=== PATIENT | female | born 2005 | race Caucasian/White ===

== ENCOUNTER 2024-03-23 17:29 | Observation (INO) ==
[2024-03-23 18:33] LABS: Basophils # (auto) 0.07 K/uL (0.00-0.20); Basophils % (auto) 0.5 %; Eosinophils # (auto) 0.25 K/uL (0.00-0.50); Eosinophils % (auto) 1.6 %; Hematocrit (blood only) 39.1 % (37.0-47.0); Hemoglobin 13.5 g/dl (12.0-16.0); Immature Granulocytes # (auto) 0.06 K/uL (0.01-0.20); Immature Granulocytes % (auto) 0.4 %; Lymphocytes # (auto) 2.46 K/uL (1.20-3.40); Lymphocytes % (auto) 15.9 %; Mean Corpuscular Hemoglobin 28.5 pg (25.0-34.0); Mean Corpuscular Hgb Conc 34.5 g/dL (32.0-36.0); Mean Corpuscular Volume 82.7 fL (80.0-100.0); Monocytes # (auto) 0.81 K/uL (0.11-0.59); Monocytes % (auto) 5.2 %; Neutrophils # (auto) 11.79 K/uL (1.40-6.50); Neutrophils % (auto) 76.4 %; Platelet Count 352 K/uL (130-400); RDW Coefficient of Variation 12.4 % (11.5-14.5); RDW Standard Deviation 37.8 fL (36.4-46.3); Red Blood Count 4.73 M/uL (4.20-5.40); White Blood Count 15.44 K/ul (4.8-10.8)
[2024-03-23 18:48] LABS: Albumin Globulin Ratio 1.4 (0.9-2); Albumin Level 4.6 gm/dl (3.4-5.0); BUN Creatinine Ratio 12.3 (10-20); Bilirubin,Total 0.4 mg/dl (0.2-1.0); Calcium 9.8 mg/dl (8.6-10.3); Creatinine Clr Calc Pharmacy 107.7 ml/min; Est GFR (African American) 121.2 ml/min; Est GFR (Non-African American) 104.6 ml/min; Globulin 3.3 gm/dl (2.5-4.0); Potassium 3.8 mmol/L (3.5-5.1); Total Protein 7.9 gm/dl (6.0-8.3)
[2024-03-23 18:54] LABS: Troponin I High Sensitivity 2.9 pg/ml (0-14)
[2024-03-23] MEDS: SODIUM CHLORIDE 0.9% 1,000 ML IV ONE (19:04)
[2024-03-23 19:08] LABS: INR 0.9 (0.9-1.1); Partial Thromboplastin Ratio 0.9; Partial Thromboplastin Time 24 Seconds (21-31); Prothrombin Time 9.6 Seconds (9.0-12.0)
--- NOTE | 2024-03-23 19:09 | Emergency Department Note ---
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 In the last several weeks, she has had episodes similar to today. She notices difficulty with her vision. The center of her vision in both eyes is blurry. She can see the periphery. She then typically develops some confusion and she has a hard time trying to text. She feels numbness usually to 1 side of the body, sometimes right, sometimes the left. After about 20 or so minutes, she develops a headache which is typically right-sided. After time, the headache resolves and she feels back to baseline. Today, around 4 hours ago, she was at practice. She began to feel funny, she noticed her vision was off, her right hand got numb, she felt confused. She noticed a bit of chest pressure. She then developed a headache. She presents for evaluation, her symptoms have now all resolved. The patient has no history of migraine or complex migraine, she is not convinced there is this diagnosis in the family. She has never had syncope with these episodes. PMHx/PSHx/Social Hx: See Below PHYSICAL EXAM: GENERAL: Patient is in no acute distress. HEENT: No acute trauma, normocephalic atraumatic, mucous membranes moist, no nasal congestion. Pupils equal and reactive to light. NECK: No stridor, no adenopathy, no meningismus, trachea is midline. LUNGS: Clear to auscultation bilaterally, no wheeze, no rhonchi, breath sounds equal. HEART: Without murmurs gallops or rubs, regular rate and rhythm. ABDOMEN: Soft, nontender, no peritonitis. EXTREMITIES: No cyanosis, full range of motion of all the joints without pain or difficulty. NEUROLOGIC: Oriented x 3, no acute motor or sensory deficits, no focal weakness. No speech slur or extremity drift, no cerebellar dysfunction, excellent historian. No facial droop. SKIN: No jaundice, no diaphoresis. DIFFERENTIAL DIAGNOSIS: Stroke, dysrhythmia, intracranial bleeding, migraine, complex migraine, among others. EMERGENCY DEPARTMENT PROCEDURES: MEDICAL DECISION MAKING: There is a moderate leukocytosis, this could be consistent with infection or just the stress of her presentation. There was a normal hemoglobin and platelet count. No coagulopathy. No renal failure or significant electrolyte abnormality. No concerning liver enzyme elevation. The patient appeared to be in a euthyroid state. testing was negative. ECG shows a sinus rhythm with some PVCs, no acute ischemia. Cardiac enzyme testing x 1 is not consistent with acute cardiac injury. Urinalysis does not show infection. Chest x-ray does not show cardiomegaly, CHF or pneumonia. Brain CT showed no acute bleed or mass effect. On exam, there were no focal neurologic findings. She was not confused, there was no meningismus. She was not febrile. Patient was given IV saline, 1 L. The patient requires a hospital stay and further workup. Her presentation certainly could be consistent with complex migraine, dysrhythmia is also concern. Cardiac monitoring and a neurology consult are warranted. I spoke with the patient, I did speak with case management, the on-call hospitalist was consulted. Prior/Outside records/notes reviewed: None ECG per my interpretation: Indication was near syncope. The ECG shows what appears to be a sinus rhythm with PVCs. The rate is 75. There is no acute ST elevation. There are no PACs. The QTc is 419. Continuous Cardiac Monitoring per my interpretation: An order was placed for continuous cardiac monitoring. The monitor shows a rate of 74 with normal sinus rhythm. Imaging/x-ray results per my interpretation: Chest x-ray does not show mediastinal widening, pneumonia or pneumothorax. Chronic Medical/Social conditions affecting care: College student. Care/Management discussed with: Case management, the on-call hospitalist. Level of care consideration(s): After review of the information above and other included data: --I believe the patient requires escalation of care to admission DISPOSITION: Admission Past Med/Surg History Problem List (Updated 03/24/24 @ 01:34 by Miguel Kumar MD) Leukocytosis (Acute) Extremity numbness (Acute) Visual disturbance (Acute) Chest pressure (Acute) Headache (Acute) Neurological symptoms Chest pressure Medical History No significant past medical history Surgical History (Updated 03/23/24 @ 23:29 by Daina Roberson DO) History of wisdom tooth extraction Family History (Updated 03/23/24 @ 23:29 by Daina Roberson DO) Other No significant family history Social History Smoking Status: Never smoker Hx Alcohol Use: No Hx Substance Use: No Preferred Language: Paraguayan Communication Ability: Effective Heading Maker Required: No Beliefs That Will Affect Care: None Current Living Situation: Other Current Living Situation Comment: off campus w/ roomates Feels Safe at Home: Yes Safety Concerns: Feels Safe At This Time Assistive Devices: Glasses Allergies Allergies Allergy/AdvReac Type Severity Reaction Status Date / Time No Known Drug Allergies Allergy Unknown Verified 03/23/24 22:13 Home Meds Home Medications Medication Instructions Recorded Confirmed levonorgestrel-ethinyl estradiol 1 tab PO UD 03/23/24 03/23/24 0.1 mg-20 mcg tablet (Lutera (28)) Results & Data (ED) Vital Signs Vital Signs - 24 hr 03/23/24 17:39 03/23/24 18:58 03/23/24 18:58 Temperature 36.8 C Temperature Source Temporal Artery Scan Pulse Rate 85 74 Pulse Rate [Left Finger] 78 Pulse Rhythm Regular Pulse Rhythm [Left Finger] Regular Pulse Strength [Left Finger] Normal Respiratory Rate 16 16 16 Respiratory Effort / Characteristics Non-Labored Spontaneous Non-Labored Respiratory Depth Normal Normal Respiratory Pattern Regular Blood Pressure 152/82 H Blood Pressure [Left Arm] 136/91 Blood Pressure Mean 105 Blood Pressure Mean [Left Arm] 106 Blood Pressure Position Sitting Blood Pressure Position [Left Arm] Lying Pulse Oximetry 99 100 100 Oxygen Delivery Method Room Air Room Air Room Air Sepsis Recent Fever Within 48 Hours No Sepsis New/Unexplained Change in Mental Status N/A Sepsis Action Taken by Nursing No Action Required 03/23/24 19:43 03/23/24 21:05 Temperature Temperature Source Pulse Rate 74 Pulse Rate [Left Finger] 80 Pulse Rhythm Pulse Rhythm [Left Finger] Regular Pulse Strength [Left Finger] Normal Respiratory Rate 20 Respiratory Effort / Characteristics Non-Labored Respiratory Depth Normal Respiratory Pattern Regular Blood Pressure Blood Pressure [Left Arm] 134/73 Blood Pressure Mean Blood Pressure Mean [Left Arm] 93 Blood Pressure Position Blood Pressure Position [Left Arm] Lying Pulse Oximetry 97 Oxygen Delivery Method Room Air Sepsis Recent Fever Within 48 Hours Sepsis New/Unexplained Change in Mental Status Sepsis Action Taken by Residential Medications Current Medication List: was personally reviewed by me Laboratory Data Attestation: I reviewed the patient's lab results. 03/23/24 18:05 03/23/24 18:05 Lab Results 03/23/24 03/23/24 Range/Units 18:05 19:38 WBC 15.44 H (4.8-10.8) K/ul RBC 4.73 (4.20-5.40) M/uL Hgb 13.5 (12.0-16.0) g/dl Hct 39.1 (37.0-47.0) % MCV 82.7 (80.0-100.0) fL MCH 28.5 (25.0-34.0) pg MCHC 34.5 (32.0-36.0) g/dL RDW Std Deviation 37.8 (36.4-46.3) fL RDW Coeff of Solis 12.4 (11.5-14.5) % Plt Count 352 (130-400) K/uL MPV 10.0 (9.4-12.4) fL Immature Gran % (Auto) 0.4 % Neut % (Auto) 76.4 % Lymph % (Auto) 15.9 % [place] % (Auto) 5.2 % Eos % (Auto) 1.6 % Baso % (Auto) 0.5 % Neut # (Auto) 11.79 H (1.40-6.50) K/uL Lymph # (Auto) 2.46 (1.20-3.40) K/uL [place] # (Auto) 0.81 H (0.11-0.59) K/uL Eos # (Auto) 0.25 (0.00-0.50) K/uL Baso # (Auto) 0.07 (0.00-0.20) K/uL Immature Gran # (Auto) 0.06 (0.01-0.20) K/uL PT 9.6 (9.0-12.0) Seconds INR 0.9 (0.9-1.1) APTT 24 (21-31) Seconds PTT Ratio 0.9 Sodium 135 L (136-145) mmol/L Potassium 3.8 (3.5-5.1) mmol/L Chloride 103 (98-107) mmol/L Carbon Dioxide 23 (21-32) mmol/L Anion Gap 9 (3-11) BUN 10 (6-23) mg/dl Creatinine 0.81 (0.6-1.2) mg/dl Est Cr Clr Drug Dosing 107.7 ml/min Est GFR ( Amer) 121.2 ml/min Est GFR (Non-Af Amer) 104.6 ml/min BUN/Creatinine Ratio 12.3 (10-20) Glucose 87 (70-99(Fasting)) mg/dl Calcium 9.8 (8.6-10.3) mg/dl Magnesium 1.8 (1.7-2.4) mg/dl Total Bilirubin 0.4 (0.2-1.0) mg/dl AST 14 (13-39) U/L ALT 12 (7-52) U/L Alkaline Phosphatase 80 (34-104) U/L Troponin I High Sens 2.9 (0-14) pg/ml Total Protein 7.9 (6.0-8.3) gm/dl Albumin 4.6 (3.4-5.0) gm/dl Globulin 3.3 (2.5-4.0) gm/dl Albumin/Globulin Ratio 1.4 (0.9-2) TSH 2.088 (0.300-4.500) uIu/ml HCG, Quant < 1 mIU/ml Urine Color Yellow Urine Appearance Clear (Clear) Urine pH 6.0 (4.5-7.5) Ur Specific [place] 1.025 (1.000-1.030) Urine Protein Negative (Negative) Urine Glucose (UA) Negative (Negative) Urine Ketones Negative (Negative) Urine Blood Negative (Negative) Urine Nitrite Negative (Negative) Urine Bilirubin Negative (Negative) Urine Urobilinogen Negative (Negative) Ur Leukocyte Esterase Negative (Negative) Administered Medications Discontinued Medications Sodium Chloride (Nss) 1,000 mls @ 999 mls/hr IV .Q1H1M ONE Stop: 03/23/24 19:53 Last Infusion: 03/23/24 21:05 Dose: Infused Documented By: Admin: 03/23/24 19:04 Dose: 999 mls/hr Documented By: WALKER Imaging Data Radiologist's Impression: Head CT 03/23/24 18:53 Exam(s): CT HEAD Without Contrast EXAM: CT Head Without Intravenous Contrast CLINICAL HISTORY: Reason for exam: hodges, syncope. TECHNIQUE: Axial computed tomography images of the head/brain without intravenous contrast. CTDI is 37.22 mGy and DLP is 546.36 mGy-cm. Automated exposure control was utilized for the study. A dose lowering technique was utilized adhering to the principles of ALARA. COMPARISON: None FINDINGS: Brain: No acute infarct or hemorrhage. No extra-axial fluid collection. No mass effect or midline shift. Ventricles and sulci: Normal. No ventriculomegaly or intraventricular hemorrhage. Bones: Normal. No bony lesion or acute fracture. Subcutaneous tissues: Normal. Sinuses: Mild mucosal thickening in the left sphenoid sinus. Mastoid air cells: Normal. Orbits: Grossly unremarkable. IMPRESSION: No acute intracranial abnormality. Electronically signed by: Cliff Arambula M.D. 03/23/24 21:29 PM Discharge Plan Visit Data Chief Complaint: Illness Stated Complaint: BLIND SPOT IN VISION, DARKNESS, FAINTING, RT SIDE ED Provider: Miguel Kumar Discharge Problem: Headache, Chest pressure, Visual disturbance, Extremity numbness, Leukocytosis Patient Disposition: Admitted As Inpatient Condition: Good Discharge Instructions Interventions: ED Discharge Assessment Last Done: 03/24/24 01:17 Discharge Problem: Headache Qualifiers: Headache type: unspecified Headache chronicity pattern: acute headache I ntractability: not intractable Qualified Code(s): R51.9 - Headache, unspecified Leukocytosis Qualifiers: Leukocytosis type: unspecified Qualified Code(s): D72.829 - Elevated white blood cell count, unspecified
[2024-03-23 19:21] LABS: Magnesium 1.8 mg/dl (1.7-2.4)
[2024-03-23 19:35] LABS: Thyroid Stimulating Hormone 2.088 uIu/ml (0.300-4.500)
[2024-03-23 20:03] LABS: Appearance Urine Clear (Clear); Bilirubin Urine Negative (Negative); Blood Urine Negative (Negative); Color Urine Yellow; Glucose Urine UA Negative (Negative); Ketones Urine Negative (Negative); Leukocyte Esterase Urine Negative (Negative); Nitrite Urine Negative (Negative); Protein Urine Negative (Negative); Specific Gravity Urine 1.025 (1.000-1.030); Urobilinogen Urine Negative (Negative)
--- NOTE | 2024-03-23 21:30 | CT Scan Report ---
Exam(s): CT HEAD Without Contrast EXAM: CT Head Without Intravenous Contrast CLINICAL HISTORY: Reason for exam: hodges, syncope. TECHNIQUE: Axial computed tomography images of the head/brain without intravenous contrast. CTDI is 37.22 mGy and DLP is 546.36 mGy-cm. Automated exposure control was utilized for the study. A dose lowering technique was utilized adhering to the principles of ALARA. COMPARISON: None FINDINGS: Brain: No acute infarct or hemorrhage. No extra-axial fluid collection. No mass effect or midline shift. Ventricles and sulci: Normal. No ventriculomegaly or intraventricular hemorrhage. Bones: Normal. No bony lesion or acute fracture. Subcutaneous tissues: Normal. Sinuses: Mild mucosal thickening in the left sphenoid sinus. Mastoid air cells: Normal. Orbits: Grossly unremarkable. IMPRESSION: No acute intracranial abnormality. Electronically signed by: Cliff Arambula M.D. 03/23/24 21:29 PM
--- NOTE | 2024-03-23 22:09 | History & Physical Report ---
Date of Service March 23, 2024 Assessment & Plan (1) Neurological symptoms: Plan: 18yo female with no significant past medical or surgical history presents with above complaints - three episodes of transient neurologic complaints, visual disturbance, confusion, anomia and weakness followed by headache. Patient neurologically intact at present with no deficits appreciated on exam. CT of the head is unremarkable Suspect complex migraine, possibly hemiplegic given report of right sided weakness during prior episode. Patient with no personal history of migraine. She does have an aunt that suffers from them, otherwise no strong family history of such. -Observation to medical with telemetry -Neurology consultation appreciated -Tylenol PRN headache -Zofran PRN nausea (2) Chest pressure: Plan: Patient reports some chest pressure prior to arrival which is now resolved. Soft RENETTA 2/6 at right 2nd ICS, EKG with some premature supraventricular complexes. 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 Patient reports she has had three similar episodes in the past - first occurring approximately one month ago while sitting in a theatre, the second one happened last week while she was laying in bed and the third episode happened today while she was at diving practice. Patient reports that she initially develops some visual disturbances - dark spots in her central field of vision in both eyes as well as difficulty focusing on objects. She then develops some mild confusion and some word finding difficulty and inability to type or text which lasts approximately 20 minutes. She has then experienced some numbness and tingling - last week's episode involved her entire right side. Her episode today involved some numbness and tingling of her right hand only. After this she develops a fairly severe right sided headache with some associated nausea. She denies fever, chills, neck pain or stiffness, no photophobia/phonophobia or smell sensitivity. No head trauma. 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 Patient today additionally developed some mild chest discomfort. She denies palpitations, syncope. Symptoms have since resolved. In the ER she is afebrile, HD stable, NAD ER Course: NSS x 1L Allergies Allergy/AdvReac Type Severity Reaction Status Date / Time No Known Drug Allergies Allergy Unknown Verified 03/23/24 22:13 Home Medications Medication Instructions Recorded Confirmed Type levonorgestrel-ethinyl estradiol 1 tab PO UD 03/23/24 03/23/24 History 0.1 mg-20 mcg tablet (Lutera (28)) Past Med/Surg History Problem List (Updated 03/23/24 @ 23:35 by Daina Roberson DO) Neurological symptoms Chest pressure Medical History (Updated 03/23/24 @ 23:35 by Daina Roberson DO) No significant past medical history Surgical History (Updated 03/23/24 @ 23:29 by Daina Roberson DO) History of wisdom tooth extraction Family History (Updated 03/23/24 @ 23:29 by Daina Roberson DO) Other No significant family history Social History (Updated 03/23/24 @ 23:29 by Daina Roberson DO) Smoking Status: Never smoker Hx Alcohol Use: No Hx Substance Use: No Feels Safe at Home: Yes Review of Systems Review of Systems: All systems reviewed & are unremarkable except as noted in HPI & below Physical Exam Physical Exam: General: patient resting comfortably, NAD, non-toxic in appearance, AA&O x 4 Skin: warm, dry, intact, no rashes or lesions HEENT: NC/AT, PERRL, EOMI, anicteric sclera, conjunctiva without injection, external ear normal to inspection and nontender, nares patent, moist mucus membranes, dentition intact, no oropharyngeal lesions, neck supple, trachea midline, no LAD, no thyromegaly, no JVD Heart: +S1/S2, regular, 2/6 RENETTA at right 2nd ICS Lungs: equal air entry bilaterally, no rales/rhonchi/wheezes Abd: +BS, soft, NT/ND, no masses/organomegaly/ascites Ext: warm, 2+ pulses in UE/LE bilaterally, no clubbing/cyanosis or edema Neuro: AA&O x 4, speech clear, fluent and appropriate, no facial droop, CN II- XII grossly intact, sensation to light touch intact, MS 5/5 in UE/LE bilaterally, no dysmetria Results & Data Results & Data Vital Signs (Past 12 Hours) Vital Signs Temp Pulse Pulse Resp BP BP Pulse Ox 03/23/24 21:05 80 20 134/73 97 03/23/24 19:43 74 03/23/24 18:58 74 16 100 03/23/24 18:58 78 16 136/91 100 03/23/24 17:39 36.8 C 85 16 152/82 H 99 O2 Del Method 03/23/24 21:05 Room Air 03/23/24 19:43 03/23/24 18:58 Room Air 03/23/24 18:58 Room Air 03/23/24 17:39 Room Air Laboratory Results Laboratory Results WBC 15.44 K/ul (4.8-10.8) H 03/23/24 18:05 RBC 4.73 M/uL (4.20-5.40) 03/23/24 18:05 Hgb 13.5 g/dl (12.0-16.0) 03/23/24 18:05 Hct 39.1 % (37.0-47.0) 03/23/24 18:05 MCV 82.7 fL (80.0-100.0) 03/23/24 18:05 MCH 28.5 pg (25.0-34.0) 03/23/24 18:05 MCHC 34.5 g/dL (32.0-36.0) 03/23/24 18:05 RDW Std Deviation 37.8 fL (36.4-46.3) 03/23/24 18:05 RDW Coeff of Solis 12.4 % (11.5-14.5) 03/23/24 18:05 Plt Count 352 K/uL (130-400) 03/23/24 18:05 MPV 10.0 fL (9.4-12.4) 03/23/24 18:05 Immature Gran % (Auto) 0.4 % 03/23/24 18:05 Neut % (Auto) 76.4 % 03/23/24 18:05 Lymph % (Auto) 15.9 % 03/23/24 18:05 [place] % (Auto) 5.2 % 03/23/24 18:05 Eos % (Auto) 1.6 % 03/23/24 18:05 Baso % (Auto) 0.5 % 03/23/24 18:05 Neut # (Auto) 11.79 K/uL (1.40-6.50) H 03/23/24 18:05 Lymph # (Auto) 2.46 K/uL (1.20-3.40) 03/23/24 18:05 [place] # (Auto) 0.81 K/uL (0.11-0.59) H 03/23/24 18:05 Eos # (Auto) 0.25 K/uL (0.00-0.50) 03/23/24 18:05 Baso # (Auto) 0.07 K/uL (0.00-0.20) 03/23/24 18:05 Immature Gran # (Auto) 0.06 K/uL (0.01-0.20) 03/23/24 18:05 PT 9.6 Seconds (9.0-12.0) 03/23/24 18:05 INR 0.9 (0.9-1.1) 03/23/24 18:05 APTT 24 Seconds (21-31) 03/23/24 18:05 PTT Ratio 0.9 03/23/24 18:05 Sodium 135 mmol/L (136-145) L 03/23/24 18:05 Potassium 3.8 mmol/L (3.5-5.1) 03/23/24 18:05 Chloride 103 mmol/L (98-107) 03/23/24 18:05 Carbon Dioxide 23 mmol/L (21-32) 03/23/24 18:05 Anion Gap 9 (3-11) 03/23/24 18:05 BUN 10 mg/dl (6-23) 03/23/24 18:05 Creatinine 0.81 mg/dl (0.6-1.2) 03/23/24 18:05 Est Cr Clr Drug Dosing 107.7 ml/min 03/23/24 18:05 Est GFR ( Amer) 121.2 ml/min 03/23/24 18:05 Est GFR (Non-Af Amer) 104.6 ml/min 03/23/24 18:05 BUN/Creatinine Ratio 12.3 (10-20) 03/23/24 18:05 Glucose 87 mg/dl (70-99(Fasting)) 03/23/24 18:05 Calcium 9.8 mg/dl (8.6-10.3) 03/23/24 18:05 Magnesium 1.8 mg/dl (1.7-2.4) 03/23/24 18:05 Total Bilirubin 0.4 mg/dl (0.2-1.0) 03/23/24 18:05 AST 14 U/L (13-39) 03/23/24 18:05 ALT 12 U/L (7-52) 03/23/24 18:05 Alkaline Phosphatase 80 U/L (34-104) 03/23/24 18:05 Troponin I High Sens 2.9 pg/ml (0-14) 03/23/24 18:05 Total Protein 7.9 gm/dl (6.0-8.3) 03/23/24 18:05 Albumin 4.6 gm/dl (3.4-5.0) 03/23/24 18:05 Globulin 3.3 gm/dl (2.5-4.0) 03/23/24 18:05 Albumin/Globulin Ratio 1.4 (0.9-2) 03/23/24 18:05 TSH 2.088 uIu/ml (0.300-4.500) 03/23/24 18:05 HCG, Quant < 1 mIU/ml 03/23/24 18:05 Urine Color Yellow 03/23/24 19:38 Urine Appearance Clear (Clear) 03/23/24 19:38 Urine pH 6.0 (4.5-7.5) 03/23/24 19:38 Ur Specific [place] 1.025 (1.000-1.030) 03/23/24 19:38 Urine Protein Negative (Negative) 03/23/24 19:38 Urine Glucose (UA) Negative (Negative) 03/23/24 19:38 Urine Ketones Negative (Negative) 03/23/24 19:38 Urine Blood Negative (Negative) 03/23/24 19:38 Urine Nitrite Negative (Negative) 03/23/24 19:38 Urine Bilirubin Negative (Negative) 03/23/24 19:38 Urine Urobilinogen Negative (Negative) 03/23/24 19:38 Ur Leukocyte Esterase Negative (Negative) 03/23/24 19:[address] 03/23/24 18:53 Exam(s): CT HEAD Without Contrast EXAM: CT Head Without Intravenous Contrast CLINICAL HISTORY: Reason for exam: hodges, syncope. TECHNIQUE: Axial computed tomography images of the head/brain without intravenous contrast. CTDI is 37.22 mGy and DLP is 546.36 mGy-cm. Automated exposure control was utilized for the study. A dose lowering technique was utilized adhering to the principles of ALARA. COMPARISON: None FINDINGS: Brain: No acute infarct or hemorrhage. No extra-axial fluid collection. No mass effect or midline shift. Ventricles and sulci: Normal. No ventriculomegaly or intraventricular hemorrhage. Bones: Normal. No bony lesion or acute fracture. Subcutaneous tissues: Normal. Sinuses: Mild mucosal thickening in the left sphenoid sinus. Mastoid air cells: Normal. Orbits: Grossly unremarkable. IMPRESSION: No acute intracranial abnormality. Electronically signed by: Cliff Arambula M.D. 03/23/24 21:29 PM Diagnostic Findings CXR - per my interpretation study with normal cardiac shadow, no infiltrate, edema, pneumothorax ECG Additional Comments: EKG per my interpretation with SR at 75bpm, premature supraventricular complexes, no acute ischemic changes, QF=605, QRS=86, WPl=945 PG Care Time/CCT Total # of Minutes Spent Total Time Spent with Patient: Total time spent is greater than 50% in coordination of care (as documented) at patient's floor/unit and/or counseling patient: Coding Level of Care Code 02261 INT INP/OBS CARE /75MIN Diagnoses Neurological symptoms R29.90 Chest pressure R07.89
--- NOTE | 2024-03-24 00:11 | Magnetic Resonance Report ---
Exam(s): MRI HEAD Without Contrast EXAM: MR Head Without Intravenous Contrast CLINICAL HISTORY: Reason for exam: transient neurologic findings. TECHNIQUE: Magnetic resonance images of the head/brain without intravenous contrast in multiple planes. COMPARISON: CT head on 03/23/2024 FINDINGS: Brain: Unremarkable. No hemorrhage. No restricted diffusion to suggest acute infarct. Ventricles: Unremarkable. No ventriculomegaly. Bones/joints: Unremarkable. No acute fracture. Sinuses: Mild mucosal thickening in the maxillary sinuses, sphenoid sinuses, and ethmoid air cells. No acute sinusitis. Mastoid air cells: Unremarkable as visualized. No mastoid effusion. Orbits: Unremarkable as visualized. Nasopharynx: Prominent adenoids and palatine tonsils. IMPRESSION: No acute findings in the head/brain. Electronically signed by: Cliff Arambula M.D. 03/24/24 00:10 AM
[2024-03-24] MEDS ORDERED: ACETAMINOPHEN 325 MG TAB PO PRN (00:36)
[2024-03-24] MEDS ORDERED: ONDANSETRON INJ 2 MG/ML 2 ML VIAL IV PRN (00:36)
[2024-03-24 05:05] LABS: Hematocrit (blood only) 34.8 % (37.0-47.0); Mean Corpuscular Hemoglobin 28.8 pg (25.0-34.0); Mean Corpuscular Hgb Conc 34.5 g/dL (32.0-36.0); Mean Corpuscular Volume 83.5 fL (80.0-100.0); Mean Platelet Volume 10.1 fL (9.4-12.4); Platelet Count 327 K/uL (130-400); RDW Coefficient of Variation 12.9 % (11.5-14.5); RDW Standard Deviation 39.1 fL (36.4-46.3); Red Blood Count 4.17 M/uL (4.20-5.40); White Blood Count 11.83 K/ul (4.8-10.8)
[2024-03-24 05:18] LABS: BUN Creatinine Ratio 12.5 (10-20); Calcium 8.8 mg/dl (8.6-10.3); Creatinine Clr Calc Pharmacy 109.1 ml/min; Est GFR (Non-African American) 106.1 ml/min; Potassium 3.6 mmol/L (3.5-5.1)
--- NOTE | 2024-03-24 07:19 | XRay Report ---
XR chest 1V portable CLINICAL HISTORY: Chest pain, nonspecific COMPARISON STUDY: No previous studies for comparison. FINDINGS: Lung volumes are normal. Lungs are clear. There is no pneumothorax or pleural effusion. Car diac size is normal. Mediastinal contours are normal. There is no evidence for pulmonary edema. IMPRESSION: No acute cardiopulmonary findings. ACT 112: Negative or not required by law. Electronically signed by: Alfie Blanc M.D. 03/24/2024 7:17 AM
--- NOTE | 2024-03-24 10:21 | Neurology Consultation ---
Date of Consultation March 24, 2024 Assessment & Plan (1) Classic migraine with aura: Plan This patient has had a longstanding history of rare mild migrainous leg events (perhaps every 6 months or less). More recently in the last month she has had 3 episodes which are consistent with migraine. The first was a classic migraine with aura followed by headache and the second was an aura without headache. The third event, yesterday, was a classic migraine with vision followed by numbness for an aura then a migraine headache. The history does not support complicated migraine and that the aura and headache are not ongoing at the same time. On neurologic examination there are no focal findings, meningeal signs, or encephalopathy. MRI of the brain without contrast was unremarkable. The patient has been on the same control pill for a year and a half. It is possible that the hormone pill is somehow related to these events although there is no concrete association. Recommendations: 1. Check B12, ESR, GOLDY, and Lyme antibody titers. 2. Consider CT angiography of the head and neck to rule out any unusual vascular anomaly (although the MRI without contrast did not show anything). 3. Alternatively, consideration of an MRI of the brain with contrast, as well as MR angiography, could show other vascular anomalies not visible with a noncontrast study. This could be done as an outpatient 4. There is no treatment for an aura once it happens. The only treatment would be to prevent with daily medication. She has only had 3 episodes and I do not believe she needs a daily medicine for headache and/or aura prevention at this time. 5. She could take xtle-qdx-fjntwpk medication during the aura to help terence the headache. Alternatively she could take a triptan such as rizatriptan 10 mg HORSE [employer]ER after the aura is done to help the headache. 6. Other treatment options are possible and best done as an outpatient. 7. We can see this patient as an outpatient in 2 to 3 weeks with the neurology PA for follow-up. Overall, I spent a total 60 minutes with this case including review of records, review of CT and MRI films, direct evaluation patient at bedside, and discussion of the case with the patient at bedside and Dr. Ferguson including differential diagnosis and treatment options. History of Present Illness Reason for Consultation: Patient is a 18-year-old, who I was asked to see at the request of Dr. Roberson, for neurologic consultation regarding unusual headaches Requesting Physician: Dr. Roberson Attending Physician: Chandler Oakley MD History of Present Illness This patient has a history of very infrequent, relatively mild headaches starting in middle school occurring perhaps every 6 months or so. These rare headaches would come with no aura or warning and consist of a bifrontal achy pain help with ibuprofen. They would tend to last 30 to 60 minutes at best and were unaccompanied by nausea, vomiting, photophobia, or phonophobia. Patient has been on the same control Po for the last year and a half. About 1 month ago she was lying in bed in the early evening after practice when she had the sudden onset of a numb and tingly feeling traveling down the right side. Included the face, arm, leg, and trunk. It lasted 20 to 30 minutes and there was no weakness. During this time she felt that she was a little confused and that it was hard to word find, text or get words out. All of the numbness resolved by 20 to 30 minutes and then she had a right sided headache towards the top of her head of a pounding and sharp nature lasting about 30 minutes. There was no nausea, vomiting, photophobia, or phonophobia. Some of the confusion lasted during the headache. After this she was back to baseline and had no further events until 1 week ago. She was sitting in theater during a class around 1 PM when she noted spots, splotching, difficulty seeing centrally bilaterally. She could see a little bit better peripherally and she felt it was hard to process visual things. This vision issue lasted about 45 minutes and then resolved. There was no numbness or dysesthesias, confusion, and no headache following this. She was back to baseline and had no further symptoms until March 23. 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 There was no confusion, no numbness at that time and although the vision issues lasted 20 minutes or so. Following this her right hand was numb (no other part of her body) which lasted another 20 minutes. Following this, she had a right sided headache at the top of her head of a pounding nature. No other symptoms were noted and the headache lasted about 1 to 2 hours. She was then back to baseline and has had no further symptom recurrence She arrived at the emergency room at 1739 with a temperature 36.8, pulse 85 and regular, respiratory rate 16, blood pressure 152/82, and O2 saturation 99%. On examination she had no focal findings, meningeal signs, or encephalopathy. CBC showed a mildly elevated white count and a normal CHEM profile. TSH was normal as was urinalysis and she was not . CT scan of the head without contrast was unremarkable. MRI of the brain without contrast was normal as well. I reviewed these films. The patient has a family history of migraine-like headaches in her maternal aunt but not her parents or siblings. Allergies Allergy/AdvReac Type Severity Reaction Status Date / Time No Known Drug Allergies Allergy Unknown Verified 03/23/24 22:13 Home Medications Medication Instructions Recorded Confirmed Type levonorgestrel-ethinyl estradiol 1 tab PO UD 03/23/24 03/23/24 History 0.1 mg-20 mcg tablet (Lutera (28)) Patient History Medical History No significant past medical history Surgical History History of wisdom tooth extraction Family History Mother Hypertension Father Diabetes Other No significant family history Social History Smoking Status: Never smoker Hx Alcohol Use: No Hx Substance Use: No Preferred Language: Yi Communication Ability: Effective Regulatory Technician Required: No Beliefs That Will Affect Care: None Current Living Situation: Other Current Living Situation Comment: off campus w/ roomates current occupational status: student 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 Feels Safe at Home: Yes Assistive Devices: Glasses Review of Systems Constitutional: no fever, no fatigue and no weakness Eyes: no diplopia, no eye pain and no worsening vision Ear, Nose, Mouth, Throat: no ear pain, no tinnitus, no hearing loss, no dizziness, no snoring, no hoarseness and no dysphagia Respiratory: no cough and no dyspnea Cardiovascular: no chest pain, no palpitations and no lightheadedness Gastrointestinal: no abdominal pain, no nausea and no vomiting Genitourinary: no dysuria, no urinary frequency and no urinary incontinence Musculoskeletal: no back pain, no neck pain, no radicular pain, no joint pain and no myalgia Integumentary: no rash and no lesions Neurologic: no gait abnormality, no localized weakness, no generalized weakness, no tingling, no numbness, no tremor(s), no abnormal movements, no headache(s), no abnormal speech, no confusion and no memory loss Psychiatric: no depression, no irritability, no anxiety, no difficulty concentrating, no confusion and no hallucinations Endocrine: no fatigue and no flushing Hematologic / Lymphatic: no easy bleeding and no easy bruising Allergy / Immunological: no urticaria and no problem reported Exam (Neuro) Physical Exam: The patient is right-handed. The patient is awake, alert, and attentive. Speech is normal without any aphasia or dysarthria. Mentation and thought processes are intact, with full orientation and normal fund of knowledge. Mood and affect are normal and appropriate. Appearance and grooming are normal. Short and long-term memory are intact. Pupils are 4 mm bilaterally and reactive to light. Extraocular eye muscles are intact without nystagmus. Visual acuity and visual pineda seem normal grossly to confrontation. There are no deficits to sensation in the face in all 3 distributions of the fifth cranial nerve bilaterally. Corneal reflexes are positive bilaterally. Facial strength and symmetry was normal bilaterally. Hearing seems intact grossly to voice and finger rub bilaterally. Palate moves well without a symmetry. There is normal sternocleidomastoid and trapezius strength bilaterally. Tongue is midline with good strength bilaterally. Neck has a full range of motion without discomfort. There are no cervical bruits bilaterally. There are no cranial or ocular bruits. Heart is without murmur. There is a regular rhythm and rate. Cervical, thoracic, and lumbar spine are nontender to palpation. Stance sitting up in bed is normal With outstretched arms there is no drift. There are no resting, postural, or action tremors. There is no ataxia with finger to nose testing. There is good facility in the hands. No other abnormal involuntary movements are noted. Motor strength is 5/5 diffusely in the arms bilaterally including deltoids, biceps, triceps, brachioradialis, wrist flexors and extensors, supervisor packing room, and intrinsic hand muscles. Motor strength is 5/5 diffusely in the legs bilaterally including hip flexors, quadriceps, hamstrings, gastrocnemius, tibialis anterior, tibialis posterior, and Peroneii muscles bilaterally. Toe extensors are normal and there is good bulk in the extensor digitorum brevis muscles bilaterally. The limbs have good tone without rigidity or spasticity. There is no atrophy noted in the muscles. Muscle bulk is normal, there is no tenderness to palpation, no myotonia to percussion, and no fasciculations seen. Sensory examination is intact to touch and pin throughout all 4 limbs diffusely. Reflexes are 2/4 in the biceps, triceps, brachioradialis, quadriceps, and Achilles tendons bilaterally. Toes are downgoing with plantar stimulation bilaterally. Peripheral pulses are present and of normal quality distally in all 4 limbs. There is no peripheral edema noted in the limbs. Results & Data Vital Signs (Past 12 Hours) Vital Signs Temp Pulse Pulse Resp BP Pulse Ox O2 Del Method 03/24/24 09:15 Room Air 03/24/24 08:16 37.1 C 68 16 103/66 96 Room Air 03/24/24 07:00 68 03/24/24 03:07 36.9 C 75 18 103/65 97 Room Air 03/24/24 00:40 77 03/24/24 00:37 37.0 C 75 18 121/76 99 Room Air 03/24/24 00:25 Room Air 03/23/24 23:28 82 20 135/86 98 Room Air PG Care Time/CCT Total # of Minutes Spent Total Time Spent with Patient: Total time spent is greater than 50% in coordination of care (as documented) at patient's floor/unit and/or counseling patient: Coding Level of Care Code 89917 IN/OBS CONSULT LVL 4,60M Diagnoses Classic migraine with aura G43.109 Time Spent (min) 60
--- NOTE | 2024-03-24 10:34 | XCELERA ---
[id number]
--- NOTE | 2024-03-24 10:54 | Electrocardiogram Report ---
Test Reason : Blood Pressure : */* mmHG Vent. Rate : 75 BPM Atrial Rate : 75 BPM P-R Int : 150 ms QRS Dur : 86 ms QT Int : 376 ms P-R-T Axes : -22 1 -15 degrees QTcB Int : 419 ms Sinus rhythm with Premature supraventricular complexes Abnormal ECG No previous ECGs available Confirmed by Mikey Casas ([id number]) on 03/24/2024 10:53:12 AM Referred By: Confirmed By: Mikey Casas
[2024-03-24] MEDS: CETIRIZINE HCL 10 MG TABLET PO ONE (11:03)
[2024-03-24] MEDS: SODIUM CHLORIDE 0.65% NA SOLN 45 ML (OCEAN) PRN (13:24)
--- NOTE | 2024-03-24 17:03 | Hospitalist Progress Note ---
Date of Service March 24, 2024 Assessment & Plan (1) Neurological symptoms: Plan: 18yo female with no significant past medical or surgical history presents with above complaints - three episodes of transient neurologic complaints, visual disturbance, confusion, anomia and weakness followed by headache. Patient neurologically intact at present with no deficits appreciated on exam. CT of the head is unremarkable Suspect complex migraine, possibly hemiplegic given report of right sided weakness during prior episode. Patient with no personal history of migraine. She does have an aunt that suffers from them, otherwise no strong family history of such. -Observation to medical with telemetry -Neurology consultation appreciated -Tylenol PRN headache -Zofran PRN nausea (2) Chest pressure: Plan: Patient reports some chest pressure prior to arrival which is now resolved. Soft RENETTA 2/6 at right 2nd ICS, EKG with some premature supraventricular complexes. EKG Intervals WNL No history of palpitations or exertional/post-exertional syncope Do not strongly suspect structural abnormality, however, given exam findings + CP + EKG will obtain echo -Check 2D echo Admission and Anticipated Discharge Date Admission Date: March 23, 2024 Results & Data Results & Data Vital Signs (Past 12 Hours) Vital Signs Temp Pulse Pulse Resp BP Pulse Ox O2 Del Method 03/24/24 14:00 90 03/24/24 13:35 98.4 F 85 16 132/84 96 03/24/24 13:08 98.4 F 85 16 132/84 96 Room Air 03/24/24 09:15 Room Air 03/24/24 08:16 98.8 F 68 16 103/66 96 Room Air 03/24/24 07:00 68 PG Care Time/CCT Total # of Minutes Spent Total Time Spent with Patient: Total time spent is greater than 50% in coordination of care (as documented) at patient's floor/unit and/or counseling patient: Coding Diagnoses Neurological symptoms R29.90 Chest pressure R07.89
--- NOTE | 2024-03-24 17:06 | Discharge Summary ---
Discharge Summary Date of Service March 24, 2024 Principal Dx & Hospital Course #1 = Principal Diagnosis (1) Neurological symptoms: 18yo female with no significant past medical or surgical history presents with above complaints - three episodes of transient neurologic complaints, visual disturbance, confusion, anomia and weakness followed by headache. Patient neurologically intact at present with no deficits appreciated on exam. CT of the head is unremarkable, MRI of the brain is unremarkable Neurology consultation completed Suspect complex migraine, possibly hemiplegic given report of right sided weakness during prior episode. Patient with no personal history of migraine. She does have an aunt that suffers from them, otherwise no strong family history of such. Patient will follow-up with neurology as an outpatient. Patient developed some sinus-like symptoms including mucopurulent nasal drainage and facial pressure treated with Augmentin therapy as an outpatient. Neurology recommended sed rate test was 10, B12 is 249normal Lyme disease negative GOLDY is a send out and pending (2) Chest pressure: Echocardiogram revealed a patent maldonado ovale. Is unclear whether this had anything to do with this patient's symptoms patient does not meet all the criteria required to consider closure. Discontinuation of control pills will reduce any encouragement for DVT and possible paroxysmal embolus. Further discussion will be undertaken with neurology outpatient follow-up. 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 Patient reports she has had three similar episodes in the past - first occurring approximately one month ago while sitting in a theatre, the second one happened last week while she was laying in bed and the third episode happened today while she was at diving practice. Patient reports that she initially develops some visual disturbances - dark spots in her central field of vision in both eyes as well as difficulty focusing on objects. She then develops some mild confusion and some word finding difficulty and inability to type or text which lasts approximately 20 minutes. She has then experienced some numbness and tingling - last week's episode involved her entire right side. Her episode today involved some numbness and tingling of her right hand only. After this she develops a fairly severe right sided headache with some associated nausea. She denies fever, chills, neck pain or stiffness, no photophobia/phonophobia or smell sensitivity. No head trauma. 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 Patient today additionally developed some mild chest discomfort. She denies palpitations, syncope. Symptoms have since resolved. In the ER she is afebrile, HD stable, NAD ER Course: NSS x 1L Discharge Exam I cannot hear the patient's murmur today on examination. Patient was discharged without focal deficits in good condition Discharge Plan Discharge Items Patient Disposition: Home - Self-Care Reason For Visit: HEADACHE, TRANSIENT NEUROLOGIC SYMPTOMS Discharge Diagnosis: headache possible atypical migraine sinus infection Pain foramen ovale identified at time of discharge Condition on Discharge: Good Activity: Resume your previous activity Non-emergency contact: Primary Care Provider Call non-emergency contact if: your symptoms worsen Follow-up/Referrals: [facility] [Primary Care Provider] - Diet: Regular Addtl Attending Provider Instructions: please follow up with Dr Yañez for further testing please complete your antibiotics and see your team doctor and/or primary care Pending Studies at Discharge: Yes Studies:: some blood work is send away, results will be checked on return Stand-Alone Forms: My [facility], Work/School Release, Smoking Cessation Medications and DC Order Prescriptions: New amoxicillin-pot clavulanate 875-125 mg tablet 1 tab PO BID Qty: 20 0RF Discontinued levonorgestrel-ethinyl estrad [Lutera (28)] 0.1-20 mg-mcg tablet 1 tab PO UD Discharge Orders: Discharge Order (Routine); Ordered 03/24/24 Ordered By: Chandler Oakley Admission Data Admit Date/Time: 03/23/24 22:08 Attending Provider: Chandler Oakley Admit Provider: Daina Roberson Primary Care Provider: [facility] Other Providers: Bartolo Yañez; Daina Roberson Other Interventions: Discharge Summary Assessment (RN) Last Done: 03/24/24 13:35 Hospital Stay Data Consultations 03/23/24 21:33 ED Decision to Admit Stat 03/23/24 22:08 Consult Neurology Routine Diagnostic Imagining Performed 03/23/24 18:53 CT head/brain wo con Stat 03/23/24 22:08 MRI Brain [MR brain wo con] Routine Pending Results Patient Have Any Pending Studies at Discharge: Yes Discharge Instructions Given to Patient (Per Discharging Provider) please follow up with Dr Yañez for further testing please complete your antibiotics and see your team doctor and/or primary care Total Time Total Time Spent Total Time Spent (In Minutes): It required greater than 30 minutes to prepare this patient for discharge. Coding Level of Care Code 39168 INP/OBS DISCH >30 MIN Diagnoses Neurological symptoms R29.90 Chest pressure R07.89
[2024-03-25 13:37] LABS: Anti Nuclear Antibody Screen NEGATIVE (NEGATIVE)
== END 2024-03-24 14:52 | disposition home or self-care (01) ==
LOC: 2W 17:29 → ED 17:29 → SUATTDRO 22:08 → 2W 03-24 01:17